=== PATIENT | male | born 1930 | race Caucasian/White ===

== ENCOUNTER 2016-10-22 18:00 | Inpatient (IN) | payer MEDICARE, OTHER ==
[~2016-10-22] VITALS: Ht 188 cm; Wt 110.6 kg
--- NOTE | ~2016-10-22 | OR ---
PATIENT'S NAME: ADELIA [facility] AGE: 86 Y [address] ROOM: [address] [address] LOCATION: [facility] ADMIT DATE: 10/22/2016 OR/Procedure Report DISCHARGE DATE: FAMILY PHYSICIAN: Cortney Campbell MD ATTENDING PHYSICIAN: Isidro Parish SURGEON: Isidro Parish MD FRUIT BUYING GRADER: DATE OF PROCEDURE: 10/23/2016 PREOPERATIVE DIAGNOSIS: Right hip intertrochanteric fracture. POSTOPERATIVE DIAGNOSIS: Right hip intertrochanteric fracture. PROCEDURE PERFORMED: Reduction and fixation of right hip with Synthes TFN System. ANESTHESIA: Spinal and block. INDICATIONS: Fell, right hip intertrochanteric fracture for fixation. The risks, benefits, and alternatives have been discussed. DESCRIPTION OF PROCEDURE: The patient was taken to the operating room, prophylactic antibiotics, placed on the fracture table in a supine position. Left leg was positioned in the candy cane. Right leg was placed in traction. Fluoroscope was used to reduce the fracture. Right flank, hip, and lower extremity were prepared with DuraPrep and draped sterilely. Fluoroscope was used to identify the axis of the femoral neck and the femoral shaft. Entry point was marked above the greater trochanter. A 5-cm incision dissection through the iliotibial band down to the tip of the greater trochanter. Using the Synthes TFN System, the guidewire was placed through the greater trochanter down the canal. In the proximal reamer, mid length 11 mm TFN right- sided nail was driven in place. The outrigger was attached. The femoral neck was instrumented, 110 mm plate was measured. The lateral cortex and canal were reamed, 110 mm helical blade was driven in place. It was locked in a dynamic position. Distal locking screw was placed. The outrigger was removed. Fluoroscopic images were saved. Wounds were irrigated. Fascia was closed with #1 Ethibond, subcutaneous tissue was closed with 0 Vicryl. Subcuticular sutures were placed with 2-0 Vicryl. Skin was closed with kal. Island dressing was placed. Procedure was done without complication. ESTIMATED BLOOD LOSS: From the procedure was nil. FLUID REPLACEMENT: Crystalloids. PATIENT'S NAME: ADELIA [facility] AGE: 86 Y [address] ROOM: [address] [address] LOCATION: [facility] ADMIT DATE: 10/22/2016 OR/Procedure Report DISCHARGE DATE: FAMILY PHYSICIAN: Cortney Campbell MD ATTENDING PHYSICIAN: Isidro Parish SPECIMENS: None. DRAINS: None. DISPOSITION/CONDITION: To the recovery room in stable condition. ISIDRO PARISH MD DPM/zeyad /[id number] d: 10/23/162032 t: 10/25/16 0831, OPERATIVE SUMMARY
--- NOTE | ~2016-10-22 | HP ---
PATIENT'S NAME: ADELIA [facility] AGE: 86 Y [address] ROOM: [place] [address] LOCATION: [facility] ADMIT DATE: 10/22/2016 History & Physical DISCHARGE DATE: FAMILY PHYSICIAN: Cortney Campbell MD ATTENDING PHYSICIAN: Isidro Parish DATE OF SERVICE: TIME OF EVALUATION: 10/22/2016 at 11:55 p.m. HISTORY OF PRESENT ILLNESS: Mr. Diaz is an 86-year-old gentleman, healthy, lives independently. He tripped either on a curve, or some hole in a street in [place], and landed on his right hip. Right hip intertrochanteric fracture. No other injuries. MEDICATIONS: See list. PAST MEDICAL HISTORY: Hypertension. Does not smoke. Does not drink alcohol. No drug abuse. REVIEW OF SYSTEMS: As above. FAMILY MEDICAL HISTORY: Prostate cancer. PERSONAL AND SOCIAL HISTORY: Lives independently, active. PHYSICAL EXAMINATION: GENERAL: White male, in no acute distress. HEENT: Decreased hearing. Sees without difficulty. Pharynx, clear. BACK: Nontender. HEART: Pulse rate is regular. LUNGS: Able to take in a deep breath. ABDOMEN: Soft. EXTREMITIES: Right hip, painful motion. Right leg, neurovascularly intact. IMAGING STUDIES: X-rays show a right hip intertrochanteric fracture with minimal osteoarthritis. ASSESSMENT AND PLAN: PATIENT'S NAME: ADELIA [facility] AGE: 86 Y [address] ROOM: [place] [address] LOCATION: [facility] ADMIT DATE: 10/22/2016 History & Physical DISCHARGE DATE: FAMILY PHYSICIAN: Cortney Campbell MD ATTENDING PHYSICIAN: Isidro Parish Recommend fixation with a TFN System. The risks, benefits, and alternatives have been discussed. ISIDRO PARISH MD DPM/zeyad /[id number] D: [id number] T: [id number] HISTORY & PHYSICAL
--- NOTE | ~2016-10-22 | DS ---
PATIENT'S NAME: MARE DELVALLE [facility] AGE: 86 Y [address] ROOM: [address] [address] LOCATION: [facility] ADMIT DATE: 10/22/2016 Discharge Summary DISCHARGE DATE: 10/27/2016 FAMILY PHYSICIAN: Cortney Campbell MD ATTENDING PHYSICIAN: Isidro Tello [facility] COURSE: Mr. Delvalle is an 86-year-old healthy gentleman, fell on the street in [place], landed on the right hip. Right hip displaced intertrochanteric fracture. Medically optimized. Taken to the operating room. Fixation with intramedullary TFN device. Mobilized. No complication. Ready for transfer to a swing bed on the . Transferred on a regular diet. Change dressing each day. Weight bear as tolerates. Will follow up with Dr. Tello on November 18, 2016, at 2 p.m. DISCHARGE MEDICATIONS: Include: 1. Aspirin. 2. Buspirone. 3. Lopressor. 4. Prilosec. 5. Compazine. 6. [place] for pain. ISIDRO TELLO MD DPM/zeyad /[id number] d: 10/29/16 1314 t: 10/30/16 1349, DISCHARGE SUMMARY
--- NOTE | ~2016-10-22 | CON ---
PATIENT'S NAME: ADELIA [facility] AGE: 86 Y [address] ROOM: [address] [address] LOCATION: [facility] ADMIT DATE: 10/22/2016 Consultation DISCHARGE DATE: FAMILY PHYSICIAN: PHYSICIAN, UNKNOWN ATTENDING PHYSICIAN: Isidro Parish REASON FOR CONSULTATION: Preop medical clearance. HISTORY OF PRESENT ILLNESS: This is an 86-year-old male with a history of hypertension, who was seen in consultation for preop medical clearance for right hip fracture. The patient was apparently leaving a chiropractice office earlier today and tripped on a crack concrete surface. He has lost his balance and fell, sustaining a hip injury, and upon evaluation in the emergency room, he was noted to have fractured right hip. The patient during my evaluation is resting comfortably in bed, and he is not in any apparent distress and tells me that he is pain free while he is at rest and not moving of the injury site. The patient denies any injury to the head, any loss of consciousness either prior to the fall or after, and the reason for the fall appears to be entirely mechanical. The patient uses a cane occasionally but was not using a cane when this incident occurred. The patient otherwise denies any chest pain, shortness of breath, dizziness, lightheadedness, any cough, dysuria, urinary frequency symptoms. Denies any fever or chills or sick contact. He had been in his normal state of health up until the injury occurred. PAST MEDICAL HISTORY: 1. History of melanoma. 2. Essential hypertension. 3. History of goiter, status post thyroidectomy in the 60s. SOCIAL HISTORY: The patient denies any history of smoking, alcohol, or drug use. FAMILY HISTORY: The patient had a father who of prostate cancer. REVIEW OF SYSTEMS: All systems have been reviewed and were all negative except as described in the HPI. PHYSICAL EXAMINATION: VITAL SIGNS: Blood pressure 180/71, pulse 78, respiratory rate 18, saturating 98% on room air. GENERAL: The patient is awake, alert, and oriented x3, in no acute distress. HEENT: Moist mucous membranes. No scleral icterus or conjunctival pallor PATIENT'S NAME: ADELIA [facility] AGE: 86 Y [address] ROOM: [id number] [place], [place] [address] LOCATION: [facility] ADMIT DATE: 10/22/2016 Consultation DISCHARGE DATE: FAMILY PHYSICIAN: PHYSICIAN, UNKNOWN ATTENDING PHYSICIAN: Isidro Parish noted. SKIN: Without rash or lesions. MUSCULOSKELETAL: Pain over the right hip with active and passive range of motion. Sensation bilaterally lower and upper extremities intact. CHEST: Clear to auscultation bilaterally. HEART: S1, S2, regular rate and rhythm. ABDOMEN: Soft, nontender, nondistended with positive bowel sounds. NEURO: Grossly nonfocal and moves all extremities adequately except for right lower extremity due to pain. LABORATORY DATA: Initial laboratories reviewed. ASSESSMENT AND PLAN: 1. Preop medical clearance for a right hip fracture fixation. The patient is without any symptoms of acute coronary syndrome or pulmonary problems that would cause any significant contraindication for surgery. The patient is an intermediate risk for perioperative complications noting his advanced age. Otherwise, the benefits of surgery outweighs the risk related to potential complications from surgery. 2. Essential hypertension: The patient is on metoprolol at home, and this should be continued perioperatively. MD SILVERIO FORBES/zeyad /[id number] d: 10/22/16 2336 t: 10/26/161999, CONSULTATION REPORT
[2016-10-22] MEDS ORDERED: ASPIRIN (CHILDR81 MG PO (19:14)
[2016-10-22] MEDS ORDERED: BUSPAR5 MG PO (19:14)
[2016-10-22] MEDS ORDERED: MECLIZINE HCL25 MG PO (19:15)
[2016-10-22] MEDS ORDERED: LOPRESSOR25 MG PO ×2 (19:16→19:17)
[2016-10-22] MEDS ORDERED: COMPAZINE10 MG PO (19:17)
[2016-10-22] MEDS ORDERED: PRILOSEC20 MG PO (19:17)
[2016-10-22] MEDS ORDERED: BUSPIRONE HCL7.5 MG PO (19:23)
--- NOTE | 2016-10-22 19:59 | NUR ---
Patient is 86 yo male admitted this evening from [facility]. Patient was at the chiropractor earlier today around 1330. he was leaving the office, had his hand on the car to step off the curb, he states the curb broke away a little and caused him to fall. He was taken to Hospital via ambulance and is transferred here. Patient lives in [place]. His son lives with him. he has 8 children. IV is infusing via gravity in left hand without erythema or edema noted at site. patient is very pleasant to visit with. He does seem to have a slight memory loss, but may be due to recent trauma. denies hitting his head. is not sure of any of his medications but knows the color and size of them. Education is given as documented. patient denies questions at this time. Son, Ray has been very helpful, has printed patient's advanced directive. [facility] to find out patient's [facility] status and confirm his medicaton list as that is where he gets his meds. call light is within reach. patient denies needs at this time. Report is given to LUDA Worley
--- NOTE | 2016-10-23 04:23 | NUR ---
Significant Event: Assumed cares at 0000. Alert and oriented. Hypertensive with last BP 152/88, otherwise VSS. Sats at 96% on RA. Hard of hearing. L) hearing aid at bedside. Top dentures at bedside. 1+ pedal pulse, pale, able to dorsal and plantar flex. Edema noted to hip/thigh area. Ice applied alternated sites from groin to hip. Voiding per urinal. Do not need to place branch per Dr. Parish. MS given X1. LR running at 150 ml to IV to L) hand. IV flushes well and has good blood return. Assisted to reposition. Was NPO at 4am. Surgery will be this afternoon. Checklist started. Risk and benefits discussed. Has not signed consent. Very pleasant and cooperative with cares. Cleared for surgery by Dr. Chung. Follow up:
--- NOTE | 2016-10-23 09:16 | NUR ---
A-CONSULT RECEIVED PER FX HIP PROTOCOL S/P L)HIP FX; TO OR TODAY HT: 74 IN. WT: 110.6 KG. BMI: 31.3 NO LABS MEDS: DILAUDID, NORCO, BUSPAR, COMPAXINE, PROTONIX, CLINDAMYCIN DIET RX: NPO APPETITE/INTAKE FOOT AND ANKLE SURGEON WERE BOTH GOOD; PT REPORTS A 50# WT GAIN EST NUTR NEEDS: 2212-3111 KCALS (15-20 KCALS/KG) 111-122 GM PROTEIN (1.0-1.1 GM/KG) 1 ML FLUID/KCAL D-NOT AT NUTRITION RISK; NO NUTRITION DX IDENTIFIED I-START APPROPRIATE DIET RX WHEN MEDICALLY INDICATED M/E-1)F/U DIET RX, PO INTAKE, AND POC IN 4-6 DAYS 2)ASSIST NEEDED
--- NOTE | 2016-10-23 18:15 | NUR ---
Significant Event: Off unit from [id number]. Dressing C/D/I. Ice at all times. No void since OR. Confused to place. Follow up:
--- NOTE | 2016-10-24 04:01 | NUR ---
Shift Summary: Patient slightly confused at beginning of shift, became increasly confused as the night progessed. Confused to place and time. Keeps thinking he is at home. Hallucinating and aggitated. Gave IV Dilaudid at 324. Percocet at 2039. Compazine for nausea at 2133. Voids frequently. States he does this at home. Had 850ml output.
--- NOTE | 2016-10-24 12:25 | NUR ---
SPOKE TO PATIENT REGARDING CM AND OUR ROLE. PATIENT LIVES IN OWN HOME WITH HIS SON. PRESENTED TO PATIENT THE OPTION OF GOING TO THE IN [place] AND HE IS IN AGREEMENT TO THIS. HIS PCP IS DR. AKHTAR. HE TELLS ME THAT HIS POA IS SAMUEL([phone]) AND ALFONZO ([phone]) AND THAT I CAN SPEAK TO EITHER ONE OF [facility] REGARDING HIS DISCHARGE PLANS. NOTIFIED THE [facility] AND ATTEMPTED TO MAKE REFERRAL HAD TO LEAVE A MESSAGE ON VANCE'S VOICE MAIL FOR HER TO CONTACT ME.
--- NOTE | 2016-10-24 14:08 | NUR ---
I STILL HAVE NOT RECEIVED CALL FROM VANCE HEBERT AT THE [facility]. I ATTEMTPED TO CONTACT VANCE BUT HAD TO LEAVE ANOTHER MESSAGE.
--- NOTE | 2016-10-24 14:30 | NUR ---
NOTIFIED [facility] IN [place] SPOKE TO LYRIC. SHE INFORMS ME THAT THEY HAVE A MALE BE. SHE WOULD LIKE FOR ME TO FAX INFO TO HER SHE WILL REVIEW IT WITH THE TEAM AND SHE WILL GET BACK TO ME ON THURSDAY. SHE IS AWARE THAT PATIENT MAY BE READY FOR DISCHARGE ON THURSDAY. INFO FAXED TO HER.
--- NOTE | 2016-10-24 14:40 | NUR ---
RECEIVED CALL FROM VANCE AT THE [facility]. SHE REPORTS THAT DR. RENNER IS OUT TO TOWN TILL THURSDAY. SHE WOULD LIKE FOR ME TO FAX INFO TO HER SHE WILL REVIEW IT WITH THE TEAM AND ALSO DR. RENNER ON THURSDAY AND SHE WILL GET BACK TO ME ON THURSDAY MORNING. SHE IS AWARE THAT PATIENT MAY BE READY FOR DISCHARGE ON THURSDAY.
--- NOTE | 2016-10-24 16:59 | NUR ---
Significant Event: Up to recliner with three assist and walker. Returned to bed with full lift and two assist. Dressing with old drainage. CSM WNL. Pain controlled with routine Tylenol 1000mg. Voids small amounts frequently per urinal. Confused to time and place. Visual hallucinations this am, better this afternoon. Follow up:
--- NOTE | 2016-10-25 04:38 | NUR ---
Significant Event: PATIENT ALERT BUT CONFUSED TO PLACE AND TIME. RESTLESS AND AGITATED AT BEGINNING OF SHIFT. MD NOTIFIED AND SEROQUEL GIVEN X 1. HAS BEEN RESTING WELL SINCE 0000. DENIES PAIN. SL PATENT TO LEFT WRIST. CSM'S WNL. ISLAND BARRIER DRESSINGS X 2 TO RIGHT HIP HAVE OLD DRAINAGE PRESENT. DRY AND INTACT. TAKES MEDS WHOLE IN WATER. UP WITH FULL LIFT PER DAY NURSE. BED AND CHAIR ALARM ON AT ALL TIMES. Follow up:
--- NOTE | 2016-10-25 12:59 | NUR ---
Significant Event: AOx3 but little forgetful. CSM WNL. Dressings to R) hip have old shadow drainage and are intact. VSS. Up with 2 assist with walker. Can't find patient's hearing aid. His son said it was in a clear cup before he went down for surgery. Follow up:
--- NOTE | 2016-10-26 02:58 | NUR ---
Significant Event: Alert and oriented X3, can be forgetful. Hard of hearing. Hypertensive, otherwise VSS. No BM yet. Voiding in small amounts, urine dark yellow, adequate output for 12 hrs. Encouraged fluids. State he has tremors to hands making it hard to grab his cup. Island barrier dressing X2 has small amount of old bloody drainage. IV SL'd. Poor transfer from chair to bed, with heavy 2 assist, gait belt and walker. Scheduled tylenol given for pain. Follow up:
--- NOTE | 2016-10-26 13:34 | NUR ---
Significant Event: AOx3. VSS. CSM WNL. Dressing C/D/I. Patient had bag bath. Up with 2 assist with walker. Up to bedside commode. Had x2 BMs. Follow up: Suppose to go to [place] tomorrow maybe.
--- NOTE | 2016-10-27 04:55 | NUR ---
Significant Event: Alert and oriented. Hypertensie with SBPs 150-153, otherwise VSS. Island barrier dressings changed this shift, they are CDI. CSM WNL. Transferred from bed to commode with 2 assist, gait belt and walker. Voiding per urinal. Ice to hip. Tylenol given for pain, next will be around 0500. Had a small BM thsi shift. Follow up: Transfer to [place] today.
--- NOTE | 2016-10-27 09:30 | NUR ---
ATTEMPTED TO SPEAK TO VANCE HEBERT AT THE [facility]. HAD TO LEAVE A MESSAGE ON VOICE MAIL FOR HER TO CONTACT ME.
--- NOTE | 2016-10-27 10:50 | NUR ---
RECEIVED CALL FROM VANCE AT THE [facility]. SHE INFORMS ME THAT THEY WILL ACCEPT PATIENT TODAY. THE CONTACT NUMBER FOR DR. RENNER IS [phone]. [address] Barb TELLO AND INFORMED HIM THAT PATIENT HAS BEEN ACCEPTED TO THE [facility]. HE IS OK WITH THIS AND HAS COMPLETED THE ORDERS. I GAVE HIM THE CONTACT NUMBER FOR DR. RENNER AND HE IS GOING TO CONTACT HER.I NOTIFIED BARRY SALAMANCA AND UPDATE HIM THAT MARE HAS BEEN ACCEPTED TO THE AT [place] AND WILL BE LEAVING HERE AT 1330. HE WILL UPDATE DR. BLACKWELL AND AGREES TO PATIENT GOING VIA AMBULANCE.DR. BLACKWELL WILL COMPLETE THE AMBULANCE CERT FORM. I SPOKE TO MARE AND UPDATED HIM THAT HE WILL BE GOING TO [place] [facility] TO THE AND HE IS HAPPY ABOUT THIS. HE NOTIFIED HIS SON SAMUEL AND INFORMED HIM OF THIS. I NOTIFIED HIS DAUGHTER GEOVANY PER HIS REQUEST AND UPDATED HER. PACKET IS COMPLETED AND I FAXED TO ORDERS TO VANCE. SPOKE TO RITU WITH [facility] AND SHE WILL ARRANGE FOR AMBULANCE TO TRANSPORT AT 1330. MICHELET WOODARD THAT PATIENT WILL BE LEAVING [place] AT 1330. I GAVE PATIENT'S NURSE THE CONTACT [facility] FOR NURSE TO NURSE REPORT [phone]
--- NOTE | 2016-10-27 12:14 | NUR ---
Transfer Note: Ambulates few steps with two assist gaitbelt and walker. Voids per bedside commode. Small BM this am. Dressing to R) hip changed, akl intact. CSM WNL. Pain controlled with routine Tylenol 1000mg last at 1135. Pleasant and cooperative with cares. A/O X3, forgetful at times. Hard of hearing, Hearing aide with family. Upper dentures, no lower teeth/dentures. Wears galsses.
== END 2016-10-27 14:20 | disposition swing bed (61) | DRG 480 ==
LOC: EDBD 18:00 → G3N 18:12
PROVIDERS: ADMIT Orthopaedic Surgery
PROC: 0QS634Z Reposition Right Upper Femur with Internal Fixation Device, Percutaneous Approach (ICD-10-PCS; principal; 2016-10-23)
DX: S72.141A Displaced intertrochanteric fracture of right femur, initial encounter for closed fracture (principal); G93.40 Encephalopathy, unspecified; I10 Essential (primary) hypertension; K21.9 Gastro-esophageal reflux disease without esophagitis; K59.00 Constipation, unspecified; E66.9 Obesity, unspecified; Z68.31 Body mass index [BMI] 31.0-31.9, adult
CPT/HCPCS: C1713; J1100; J1170; J1650; J2270; J2405; J7120; Q0164

== ENCOUNTER → 2016-10-22 | Outpatient (CLI) | payer MEDICARE, OTHER ==
[~2016-10-22] MED LIST: ASPIRIN (CHILDR81 MG PO; BUSPAR5 MG PO; BUSPIRONE HCL7.5 MG PO; COMPAZINE10 MG PO; LOPRESSOR25 MG PO; MECLIZINE HCL25 MG PO; PRILOSEC20 MG PO
== END | disposition disaster alternative care site (69) ==
LOC: GAMB 16:42
DX: S79.911A Unspecified injury of right hip, initial encounter (principal); M25.551 Pain in right hip; I10 Essential (primary) hypertension; Z79.82 Long term (current) use of aspirin; Z79.899 Other long term (current) drug therapy; Z88.0 Allergy status to penicillin
CPT/HCPCS: A0425; A0428

== ENCOUNTER → 2016-10-27 | Outpatient (CLI) | payer MEDICARE, OTHER | END | disposition disaster alternative care site (69) | LOC: GAMB 14:13 | DX: S79.911A Unspecified injury of right hip, initial encounter (principal); S72.001A Fracture of unspecified part of neck of right femur, initial encounter for closed fracture; I10 Essential (primary) hypertension; E07.9 Disorder of thyroid, unspecified; E89.0 Postprocedural hypothyroidism; K58.9 Irritable bowel syndrome, unspecified; N40.0 Benign prostatic hyperplasia without lower urinary tract symptoms; Z79.82 Long term (current) use of aspirin; Z79.899 Other long term (current) drug therapy; Z88.0 Allergy status to penicillin; W19.XXXA Unspecified fall, initial encounter | CPT/HCPCS: A0425; A0428 ==

== ENCOUNTER → 2016-11-24 | Outpatient (CLI) | payer MEDICARE, OTHER | END | disposition disaster alternative care site (69) | LOC: GRAD 09:00 | DX: S72.001A Fracture of unspecified part of neck of right femur, initial encounter for closed fracture (principal); X58.XXXA Exposure to other specified factors, initial encounter ==